=== PATIENT | female | born 1965 | race Caucasian/White ===

== ENCOUNTER 2016-12-29 22:55 | Inpatient (IN) | payer MEDICAID ==
[~2016-12-29] VITALS: Ht 157.5 cm; Wt 64.9 kg
[~2016-12-29 22:55] MED LIST: ACET-868 PO; ASPI1TAB9 PO
--- NOTE | 2016-12-29 23:00 | NUR ---
PT A/OX4 BREATHING EFFORTLESSLY ON ROOM AIR, PT STATES SHE STARTED HAVING CP AT 1200 TODAY AND THEN WENT AWAY AND STARTED BACK AGAIN AT 2230, PT WAS GIVEN 162MG OF ASA AND 3 SPRAYS OF NITRO PRIOR TO ARRIVAL, PT STATES HER PAIN IS A 4/10, IV PLACED PRIOR TO ARRIVAL, PT ON MONITOR, IN [place] ANTONIOWColin CARSON IN ROOM, PT FAMILY AT BEDSIDE WILL CONTINUE TO MONITOR.
[2016-12-29] MEDS ORDERED: ASPIRIN 81 MG TAB.CHEW ONE (23:01)
[2016-12-29] MEDS ORDERED: MORPHINE SULFATE INJ 2 MG/ML DISP.SYRIN ONE (23:11)
[2016-12-29] MEDS ORDERED: ONDANSETRON HCL/PF 4 MG/2 ML VIAL ONE (23:11)
[2016-12-29] MEDS ORDERED: MORPHINE SULFATE INJ 2 MG/ML DISP.SYRIN IV ONE (23:30)
[2016-12-29] MEDS ORDERED: ONDANSETRON HCL/PF 4 MG/2 ML VIAL IVP ONE (23:30)
[2016-12-29] MEDS ORDERED: ASPIRIN 81 MG TAB.CHEW PO ONE (23:30)
[2016-12-29 23:32] LABS: BASOPHILS % (AUTO) 0.6 % (0.0-2.0); EOSINOPHILS # (AUTO) 0.2 /CMM (0.0-0.7); EOSINOPHILS % (AUTO) 2.8 % (0.0-6.0); HEMATOCRIT 41 % (33-45); HEMOGLOBIN 13.9 g/dL (11.5-14.8); LYMPHOCYTES % (AUTO) 48.8 % (20.0-44.0); MEAN CORPUSCULAR HEMOGLOBIN 31 PG (26.0-33.0); MEAN CORPUSCULAR HGB CONC 34 g/dl (31.0-36.0); MEAN CORPUSCULAR VOLUME 90 fL (82-100); MONOCYTES # (AUTO) 0.4 /CMM (0.1-1.30); MONOCYTES % (AUTO) 4.4 % (2.0-12.0); NEUTROPHILS # (AUTO) 3.5 /CMM (1.8-8.9); NEUTROPHILS % (AUTO) 43.4 % (43.0-81.0); PLATELET COUNT (AUTO) 259 /CMM (150-450); RDW COEFFICIENT OF VARIATION 12.7 (11.5-15.0); RED BLOOD CELL COUNT(AUTO) 4.53 MIL/uL (4.0-5.2); WHITE BLOOD COUNT (AUTO) 8.1 K/uL (4.3-11.0)
[2016-12-29 23:50] LABS: TROPONIN I < 0.017 ng/mL (0.00-0.056)
[2016-12-29 23:52] LABS: CALCIUM, SERUM 8.9 mg/dL (8.5-10.1); CARBON DIOXIDE 25 mmol/L (21-32); CHLORIDE 106 mmol/L (98-107); CREATININE 0.7 mg/dL (0.6-1.3); GFR 88 mL/min (>60); GLUCOSE 120 mg/dL (74-106); POTASSIUM 3.6 mmol/L (3.5-5.1); SODIUM SERUM 141 mmol/L (136-145); UREA NITROGEN, BLOOD 17 mg/dL (7-18)
[2016-12-29 23:57] LABS: INR 0.99 (0.87-1.13); PROTHROMBIN TIME 10.6 SECS (9.5-12.7)
[2016-12-30 00:03] LABS: ALANINE AMINOTRANSFERASE 34 U/L (12-78); ALBUMIN 3.7 g/dL (3.4-5.0); ALKALINE PHOSPHATASE 89 U/L (46-116); ASPARTATE AMINOTRANSFERASE 15 U/L (15-37); B-TYPE NATRIURETIC PEPTIDE 47 PG/ML (0-125); BILIRUBIN,TOTAL 0.1 mg/dL (0.2-1.0); TOTAL PROTEIN, SERUM 7.4 g/dL (6.4-8.2)
[2016-12-30 01:35] VITALS: BP 124/70
--- NOTE | 2016-12-30 01:36 | NUR ---
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 PATIENT WAS BROUGHT TO UNIT VIA KATHERYN, AOX4, ON ROOM AIR, BREATHING EVEN AND UNLABORED. BREATH SOUNDS CLEAR TO AUSCULTATION. APPEARS CALM, COOPERATIVE AND IN NO DISTRESS, WITH GOOD NORMAL COLOR, NON DIAPHORETIC. STATES THAT THIS IS THE FIRST TIME THAT SHE HAD CHEST PAIN, AND DESCRIBED IT MIDSTERNAL TO LOWER CHEST, NON RADIATING, FEELS MORE LIKE PRESSURE, IS NOT EXACERBATED WHEN BREATHING, AND NON-RADIATING. PATIENT DID SAY THAT THE CP OCCURRED WHILE SHE WAS WORKING. NOW STATES THE PAIN TO BE AT A 4. REASSURED PATIENT. PIV OVER R HAND G 20 INTACT AND PATENT TO FLUSH. PROVIDED FOR COMFORT AND SAFETY. BED IN LOWEST AND LOCKED POSITION, SIDERAILS UP X3. PATIENT PLACED ON TELE MONITORING. VS CHECKED AND ARE WITHIN NORMAL. ORIENTED TO UNIT. WILL CONT TO MONITOR.
--- NOTE | 2016-12-30 02:41 | NUR ---
RN NOTES: PATIENT IS A CURRENT DAILY SMOKER, SMOKES 1 1/2 PACK A DAY. SMOKING CESSATION TEACHING GIVEN, HOWEVER, PATIENT STATES SHE IS NOT WILLING TO QUIT AT THIS TIME. WILL CONT TO MONITOR.
[2016-12-30] MEDS ORDERED: HYDROCODONE/APAP 5/325MG 1 EACH TABLET PO PRN (03:00)
[2016-12-30] MEDS ORDERED: ZOLPIDEM TARTRATE 5 MG TABLET PO PRN (03:00)
[2016-12-30] MEDS ORDERED: ONDANSETRON HCL/PF 4 MG/2 ML VIAL IV PRN (03:00)
[2016-12-30 03:57] VITALS: BP 133/67
--- NOTE | 2016-12-30 06:47 | NUR ---
CLOTH BOLT BANDER CLOSING NOTES: PATIENT IN BED,. ASLEEP BUT EASILY AWAKENED TO NAME BEING CALLED. ON ROOM AIR, BREATHING EVEN AND UNLABORED. PATIENT CONTINUES TO BE ON TELE MONITOR WITH SINUS RHYTHM, RATE OBSERVED TO BE AT 55-60S WHILE ASLEEP, 70S WHILE AWAKE. PIV OVER R HAND G 20 INTACT AND PATENT TO FLUSH. PROVIDED FOR COMFORT AND SAFETY. NO ACUTE CHANGE IN CONDITION. PATIENT WAS ABLE TO SLEEP WELL THROUGH THE NIGHT. BED IN LOWEST AND LOCKED POSITION, SIDE RAILS UP X3, CALL LIGHT WITHIN REACH. WILL ENDORSE TO AM RN FOR SARA.
[2016-12-30 06:53] VITALS: BP 112/70
--- NOTE | 2016-12-30 07:18 | NUR ---
MS/RN OPENING NOTES RECEIVED PATIENT AWAKE IN BED IN NO ACUTE SIGNS OF DISTRESS. ALERT AND ORIENTED X4, DENIES ANY PAIN OR ANY DISCOMFORTS AT THIS TIME. IV ACCESS TO RIGHT HAND PATENT AND INTACT. CALL LIGHT WITHIN EASY REACH. BED LOW AND LOCKED WITH FOR SAFETY. WILL CONTINUE TO MONITOR ACCORDINGLY. Addendum: 12/30/16 at 0749 by PILO JOSE RN ADDENDUM; PATIENT ON TELE-MONITORING WITH READINGS OF SINUS RHYTHM AND HR OF 67 AT THIS TIME. WILL CONTINUE TO MONITOR.
[2016-12-30] MEDS ORDERED: PANTOPRAZOLE 40 MG TABLET.DR PO SCH (07:30)
[2016-12-30 07:50] LABS: BASOPHILS # (AUTO) 0.1 /CMM (0.0-0.2); BASOPHILS % (AUTO) 0.7 % (0.0-2.0); EOSINOPHILS # (AUTO) 0.2 /CMM (0.0-0.7); HEMATOCRIT 42 % (33-45); HEMOGLOBIN 14.1 g/dL (11.5-14.8); LYMPHOCYTES # (AUTO) 3.4 /CMM (0.8-4.8); LYMPHOCYTES % (AUTO) 47.6 % (20.0-44.0); MEAN CORPUSCULAR HEMOGLOBIN 30 PG (26.0-33.0); MEAN CORPUSCULAR HGB CONC 34 g/dl (31.0-36.0); MEAN CORPUSCULAR VOLUME 90 fL (82-100); MONOCYTES # (AUTO) 0.4 /CMM (0.1-1.30); MONOCYTES % (AUTO) 5.9 % (2.0-12.0); NEUTROPHILS % (AUTO) 42.8 % (43.0-81.0); PLATELET COUNT (AUTO) 248 /CMM (150-450); RDW COEFFICIENT OF VARIATION 12.6 (11.5-15.0); RED BLOOD CELL COUNT(AUTO) 4.62 MIL/uL (4.0-5.2)
[2016-12-30 08:00] VITALS: BP 123/65
[2016-12-30 08:10] LABS: ALBUMIN 3.5 g/dL (3.4-5.0); BILIRUBIN,TOTAL 0.3 mg/dL (0.2-1.0); CALCIUM, SERUM 8.8 mg/dL (8.5-10.1); CREATININE 0.5 mg/dL (0.6-1.3); POTASSIUM 4.1 mmol/L (3.5-5.1)
[2016-12-30] MEDS ORDERED: PANT40TA2 PO (08:35)
[2016-12-30 08:42] LABS: CHOLESTEROL 289 mg/dL (<200); HDL CHOLESTEROL 43 mg/dL (40-60); LDL 186 mg/dL (0-99); TRIGLYCERIDES 164 mg/dL (30-150)
[2016-12-30] MEDS ORDERED: ASPIRIN EC 81 MG TABLET.DR PO SCH (09:00)
--- NOTE | 2016-12-30 13:02 | NUR ---
BUS OPERATOR NOTES PATIENT LEFT UNIT @ 12:45H IN STABLE CONDITION, AMBULATORY ACCOMPANIED BY DAUGHTER. ALERT AND ORIENTED X4, NO COMPLAINTS OF CHEST PAIN OR DISCOMFORTS ON DISCHARGE. V/S TAKEN AND RECORDED. SKIN IS INTACT. IV ACCESS REMOVED. BELONGINGS CHECKED, COUNTED AND SIGNED FORM. SMOKING CESSATION EMPHASIZED. HEALTH TEACHINGS GIVEN TO PATIENT AND VERBALIZED UNDERSTANDING. MD AND NURSE IN CHARGE AWARE OF DISCHARGE.
== END 2016-12-30 12:46 | disposition home or self-care (01) | DRG 241 ==
LOC: ER 22:59 → TELE 12-30 01:12 → MED 12-30 11:24
PROVIDERS: ADMIT Internal Medicine; ATTEND Internal Medicine
DX: K29.70 Gastritis, unspecified, without bleeding (principal); K27.9 Peptic ulcer, site unspecified, unspecified as acute or chronic, without hemorrhage or perforation; F17.210 Nicotine dependence, cigarettes, uncomplicated; R07.9 Chest pain, unspecified; G43.909 Migraine, unspecified, not intractable, without status migrainosus
CPT/HCPCS: 36415; 71010-TC; 76705-TC; 80048-TC; 80053-TC; 80061-TC; 80076-TC; 83880; 84484-TC; 85025-TC; 85730-TC; 87081-TC; A4606; J2270; J2405; Z7610

== ENCOUNTER 2019-04-11 20:04 | Emergency (ER) | payer MEDICAID ==
[~2019-04-11] VITALS: Ht 154.9 cm; Wt 66.7 kg
[~2019-04-11 20:04] MED LIST changes: +PANT40TA2 PO
[2019-04-11 20:40] VITALS: BP 132/75
--- NOTE | 2019-04-11 20:40 | NUR ---
PT BIB SON C/C NOTICED SPIDER BITE YESTERDAY, MINOR DRAINAGE, +ITCHING, REDNESS NOTED
[2019-04-11] MEDS ORDERED: TDAP [DIPH/PERTUSSIS/TET] 0.5 ML VIAL IM ONE ×2 (20:58→21:00)
--- NOTE | 2019-04-11 21:09 | NUR ---
Patient discharged to home in stable condition. Written and verbal after care instructions given. Patient verbalizes understanding of instruction.
== END 2019-04-11 21:19 | disposition home or self-care (01) ==
LOC: ER 20:06
DX: S40.861A Insect bite (nonvenomous) of right upper arm, initial encounter (principal); L08.9 Local infection of the skin and subcutaneous tissue, unspecified; L03.113 Cellulitis of right upper limb; Z98.890 Other specified postprocedural states; Z79.82 Long term (current) use of aspirin; W57.XXXA Bitten or stung by nonvenomous insect and other nonvenomous arthropods, initial encounter; Y93.89 Activity, other specified; Y92.89 Other specified places as the place of occurrence of the external cause; Y99.8 Other external cause status
CPT/HCPCS: 90715